=== PATIENT | female | born 1955 | race Two or more races ===

== ENCOUNTER 2018-04-10 11:09 | Day surgery (SDC) | payer OTHER ==
[2018-04-10] MEDS ORDERED: MIDAZOLAM 1 MG/ML 2 ML INJ (12:03)
[2018-04-10] MEDS ORDERED: FENTAnyl 50 MCG/ML VIAL (12:03)
[2018-04-10] MEDS ORDERED: LIDOCAINE 2% (SDV) 5 ML INJ (12:09)
[2018-04-10] MEDS ORDERED: PROPOFOL 20 ML (12:09)
[2018-04-10] MEDS ORDERED: ONDANSETRON 4 MG INJ (12:09)
== END 2018-04-10 16:47 | disposition home or self-care (01) ==
LOC: SDS 11:09
DX: Q69.9 Polydactyly, unspecified (principal); E11.9 Type 2 diabetes mellitus without complications; Z53.8 Procedure and treatment not carried out for other reasons
CPT/HCPCS: 82962